=== PATIENT | female | born 2000 | race Caucasian/White ===

== ENCOUNTER 2023-11-02 22:15 | Emergency (ER) | payer BC, OTHER ==
[2023-11-02 22:37] VITALS: TEMP 98.6
[2023-11-02 23:06] LABS: Absolute Neutrophil Ct (ANC) 5.05 x10^3/uL (1.56-6.13); BASOPHIL % 1.1 % (0.1-1.2); Eosinophil % 5.7 % (0.7-5.8); Eosinophil (Absolute #) 0.51 x10^3/uL (0.04-0.36); Hemoglobin 11.8 g/dL (11.2-15.7); IMMATURE GRAN # 0.02 x10^3u/L (0.001-0.031); IMMATURE GRAN % 0.2 % (0.001-0.429); Lymphocyte (Absolute #) 2.73 x10^3/uL (1.18-3.74); Lymphocytes % 30.3 % (19.3-51.7); Mean Cell Volume 90.9 fL (79.4-94.8); Mean Corpuscular Hemoglobin 29.8 pg (25.6-32.2); Mean Corpuscular Hgb Concent. 32.8 g/dL (32.2-35.5); Mean Platelet Volume 9.5 fL (9.4-12.3); Monocyte (Absolute #) 0.59 x10^3/uL (0.24-0.86); Monocytes % 6.6 % (4.7-12.5); Neutrophil % 56.1 % (34.0-71.1); Platelet Count 333 x10^3/uL (182-369); Red Blood Count 3.96 x10^6/uL (3.93-5.22); Red Cell Distribution Width 13.2 % (11.7-14.4)
[2023-11-02] MEDS ORDERED: Sodium Chloride 0.9% 1000 ML 1,000 ML ONE (23:07)
[2023-11-02] MEDS ORDERED: Zofran 4 MG/2 ML VIAL ONE (23:07)
[2023-11-02] MEDS ORDERED: MORPHINE SULFATE 2 MG INJ ONE ×2 (23:07→23:50)
[2023-11-02] MEDS: Zofran 4 MG/2 ML VIAL IV ONE (23:10)
[2023-11-02] MEDS: Sodium Chloride 0.9% 1000 ML 1,000 ML IV STA (23:10)
[2023-11-02] MEDS: MORPHINE SULFATE 2 MG INJ IV ONE ×2 (23:10→23:50)
[2023-11-02 23:16] LABS: Appearance Cloudy (Clear); Bacteria Few /HPF (None Seen); Bilirubin Negative (Negative); Blood Negative (Negative); Epithelial Cells Moderate /HPF (None Seen); Glucose, Urine Negative (Negative); Hyaline Casts NONE SEEN /LPF (0-2); Ketones Negative (Negative); Leukocyte Esterase Negative (Negative); Nitrite Negative (Negative); Ph 6.5 (4.6-8.0); Protein,Urine Dip Negative (Negative); RBC 0-2 /HPF (0-5); Urobilinogen 0.2 mg/dL (0.2)
[2023-11-02 23:18] LABS: ALBUMIN 4.4 g/dL (3.5-5.0); BILIRUBIN,TOTAL 0.2 mg/dL (0.2-1.3); Calcium 9.5 mg/dL (8.4-10.2); Creatinine 1 0.79 mg/dL (0.52-1.04); EST GLOMERULAR FILTRATION RATE 106.4 ML/MIN; HCG SERUM TEST NEGATIVE (NEGATIVE); Potassium 3.9 mmol/L (3.5-5.1); Total Protein 7.5 g/dL (6.3-8.2)
[2023-11-02 23:21] LABS: ADD URINE CULTURE? NO (NO)
--- NOTE | 2023-11-02 23:23 | ERPHSYRPT ---
- History of Present Illness Time Seen by Provider: 11/02/23 22:24 Historian: patient Exam Limitations: no limitations Patient Subjective Stated Complaint: Abdominal pain Triage Nursing Assessment: Patient ambulated back to ED and transferred self to bed. Patient A+O X 3. Patient's skin pink, warm and dry. Patient complains of right lower abdominal pain that started today that has gotten worse. Patient states pain is 8/10. Patient complains of Nausea and diarrhea, but denies vomiting. Abdomen soft and round with BS X 4. Right lower quad tender with palpation. Physician History: 23-year-old female presented in the ER with complaint of right-sided abdominal pain waking her up from sleep since morning, moderate to severe sharp, hurts to ambulate, palpation, reports associated nausea but no vomiting. Also reports couple of episodes of loose stool. No fever or chills reported. Denies any known sick contact. Allergies/Adverse Reactions: No Known Drug Allergies Allergy (Unverified 11/02/23 22:28) Home Medications: Fluoxetine HCl [Prozac] 1 tab PO DAILY 11/02/23 [History] Propranolol HCl 1 tab PO BID 11/02/23 [History] Hx Influenza Vaccination/Date Given: No Hx Pneumococcal Vaccination/Date Given: No Immunizations Up to Date: Yes Travel Risk - International Travel Have you traveled outside of the country in past 3 weeks: No - Emerging Infectious Disease Are you exhibiting symptoms associated with any current EIDs: No - Review of Systems Constitutional: No Symptoms Ears, Nose, & Throat: No Symptoms Respiratory: No Symptoms Cardiac: No Symptoms Abdominal/Gastrointestinal: Abdominal Pain, Nausea, Diarrhea Genitourinary Symptoms: No Symptoms Musculoskeletal: No Symptoms Skin: No Symptoms Neurological: No Symptoms Psychological: No Symptoms Endocrine: No Symptoms Hematologic/Lymphatic: No Symptoms - Past Medical History Pertinent Past Medical History: Yes Neurological History: No Pertinent History ENT History: No Pertinent History Cardiac History: No Pertinent History Respiratory History: No Pertinent History Endocrine Medical History: No Pertinent History Musculoskeletal History: No Pertinent History GI Medical History: No Pertinent History History: No Pertinent History Psycho-Social History: Anxiety Female Reproductive Disorders: No Pertinent History Other Medical History: Hx of kidney stones. 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 - Past Surgical History Past Surgical History: Yes Neuro Surgical History: No Pertinent History Cardiac: No Pertinent History Respiratory: No Pertinent History Gastrointestinal: No Pertinent History Genitourinary: No Pertinent History Musculoskeletal: No Pertinent History Female Surgical History: Section, Tubal Ligation Other Surgical History: C section X 2 - Female History Hx Last Menstrual Period: 1 month ago Hx Now: (unkn) - Social History Smoking Status: Never smoker Exposure to second hand smoke: No Drug Use: marijuana - Social Determinants of Health Will the patient participate in the screening: Yes Do you worry about a steady place to live?: No Do you have any problems with any of the following?: No known problems In the past 12 months,have you had to go without utilities?: No Transportation Issues: No Has anyone in your support network made you feel unsafe?: No Have you or anyone in your house had to go without enough: No - Nursing Vital Signs Nursing Vital Signs: Initial Vital Signs Temperature 98.6 F 11/02/23 22:29 Pulse Rate 69 11/02/23 22:29 Respiratory Rate 18 11/02/23 22:29 Blood Pressure 124/85 11/02/23 22:29 O2 Sat by Pulse Oximetry 98 11/02/23 22:29 Pain Scale Pain Intensity 7 - Physical Exam General Appearance: no apparent distress, alert, anxiety Eye Exam: PERRL/EOMI Ears, Nose, Throat Exam: normal ENT inspection Neck Exam: normal inspection, supple, full range of motion Respiratory Exam: normal breath sounds, lungs clear Cardiovascular Exam: regular rate/rhythm, normal heart sounds Gastrointestinal/Abdomen Exam: soft, normal bowel sounds, tenderness (Right flank/right lower quadrant/periumbilical area with minimal guarding but no rebound tenderness.) Back Exam: normal inspection Extremity Exam: normal inspection, normal range of motion Neurologic Exam: alert, oriented x 3, cooperative Skin Exam: normal color SpO2 Interpretation: normal SpO2: 98 O2 Delivery: Room Air Ordered Tests: Active Orders 24 hr Category Date Time Status IV Insertion STAT Care 11/02/23 22:58 Active NPO (ED) STAT Care 11/02/23 22:58 Active ABDOMEN AND PELVIS W CONTRAST [CT] Stat Exams 11/02/23 22:59 Completed CBC W DIFF Stat Lab 11/02/23 23:03 Completed CMP Stat Lab 11/02/23 23:03 Completed HCG QUALITATIVE, SERUM Stat Lab 11/02/23 23:03 Completed LIPASE Stat Lab 11/02/23 23:03 Completed Lactic Acid Stat Lab 11/02/23 23:04 Completed UA W/RFX UR CULTURE Stat Lab 11/02/23 23:00 Completed Medication Summary Discontinued Medications Generic Name Dose Route Start Last Admin Trade Name Deepak PRN Reason Stop Dose Admin Sodium Chloride 1,000 mls @ 999 mls/hr 11/02/23 22:58 11/03/23 00:23 Sodium Chloride 0.9% 1000 Ml IV 11/02/23 23:58 Infused .Q1H1M STA Infusion Sodium Chloride Confirm 11/02/23 23:07 Sodium Chloride 0.9% 1000 Ml Administered 11/02/23 23:08 Dose 1,000 mls @ ud .ROUTE .STK-MED ONE Morphine Sulfate 2 mg 11/02/23 22:58 11/02/23 23:10 Morphine Sulfate 2 Mg/Ml Inj IV 11/02/23 22:59 2 mg STAT ONE Administration Morphine Sulfate Confirm 11/02/23 23:07 Morphine Sulfate 2 Mg/Ml Inj Administered 11/02/23 23:08 Dose 2 mg .ROUTE .STK-MED ONE Morphine Sulfate 2 mg 11/02/23 23:44 11/02/23 23:50 Morphine Sulfate 2 Mg/Ml Inj IV 11/02/23 23:45 2 mg STAT ONE Administration Morphine Sulfate Confirm 11/02/23 23:50 Morphine Sulfate 2 Mg/Ml Inj Administered 11/02/23 23:51 Dose 2 mg .ROUTE .STK-MED ONE Ondansetron HCl 4 mg 11/02/23 22:58 11/02/23 23:10 Ondansetron Hcl 4 Mg/2 Ml Vial IV 11/02/23 22:59 4 mg STAT ONE Administration Ondansetron HCl Confirm 11/02/23 23:07 Ondansetron Hcl 4 Mg/2 Ml Vial Administered 11/02/23 23:08 Dose 4 mg .ROUTE .STK-MED ONE Lab/Rad Data: Laboratory Result Diagrams 11/02/23 23:03 11/02/23 23:03 Laboratory Results 11/02/23 11/02/23 11/02/23 Range/Units 23:04 23:03 23:03 WBC (3.98-10.04) x10^3/uL RBC (3.93-5.22) x10^6/uL Hgb (11.2-15.7) g/dL Hct (34.1-44.9) % MCV (79.4-94.8) fL MCH (25.6-32.2) pg MCHC (32.2-35.5) g/dL RDW (11.7-14.4) % Plt Count (182-369) x10^3/uL MPV (9.4-12.3) fL Gran % (34.0-71.1) % Immature Gran % (Auto) (0.001-0.429) % Nucleat RBC Rel Count (0.00-0.2) % Eos # (Auto) (0.04-0.36) x10^3/uL Immature Gran # (Auto) (0.001-0.031) x10^3u/L Absolute Lymphs (auto) (1.18-3.74) x10^3/uL Absolute Monos (auto) (0.24-0.86) x10^3/uL Absolute Nucleated RBC (0.00-0.012) x10^3u/L Lymphocytes % (19.3-51.7) % Monocytes % (4.7-12.5) % Eosinophils % (0.7-5.8) % Basophils % (0.1-1.2) % Absolute Granulocytes (1.56-6.13) x10^3/uL Basophils # (0.01-0.08) x10^3/uL Sodium 140 (135-145) mmol/L Potassium 3.9 (3.5-5.1) mmol/L Chloride 105 (98-107) mmol/L Carbon Dioxide 29 (22-30) mmol/L Anion Gap 10.0 (5-15) MEQ/L BUN 6 L (7-17) mg/dL Creatinine 0.79 (0.52-1.04) mg/dL Estimated GFR 106.4 ML/MIN Glucose 101 (74-106) mg/dL Lactic Acid 0.5 (0.4-2.0) Calcium 9.5 (8.4-10.2) mg/dL Total Bilirubin 0.20 (0.2-1.3) mg/dL AST 20 (14-36) U/L ALT 13 (0-35) U/L Alkaline Phosphatase 57 (38-126) U/L Serum Total Protein 7.5 (6.3-8.2) g/dL Albumin 4.4 (3.5-5.0) g/dL Lipase 66 (23-300) U/L Serum HCG, Qual NEGATIVE (NEGATIVE) Urine Color (Yellow) Urine Appearance (Clear) Urine pH (4.6-8.0) Ur Specific [place] (1.005-1.030) Urine Protein (Negative) Urine Glucose (UA) (Negative) mg/dL Urine Ketones (Negative) Urine Blood (Negative) Urine Nitrite (Negative) Urine Bilirubin (Negative) Urine Urobilinogen (0.2) mg/dL Ur Leukocyte Esterase (Negative) U Hyaline Cast (Auto) (0-2) /LPF Urine Microscopic RBC (0-5) /HPF Urine Microscopic WBC (0-5) /HPF Ur Epithelial Cells (None Seen) /HPF Urine Bacteria (None Seen) /HPF Urine Culture Reflexed (NO) 11/02/23 11/02/23 Range/Units 23:03 23:00 WBC 9.0 (3.98-10.04) x10^3/uL RBC 3.96 (3.93-5.22) x10^6/uL Hgb 11.8 (11.2-15.7) g/dL Hct 36.0 (34.1-44.9) % MCV 90.9 (79.4-94.8) fL MCH 29.8 (25.6-32.2) pg MCHC 32.8 (32.2-35.5) g/dL RDW 13.2 (11.7-14.4) % Plt Count 333 (182-369) x10^3/uL MPV 9.5 (9.4-12.3) fL Gran % 56.1 (34.0-71.1) % Immature Gran % (Auto) 0.2 (0.001-0.429) % Nucleat RBC Rel Count 0.0 (0.00-0.2) % Eos # (Auto) 0.51 H (0.04-0.36) x10^3/uL Immature Gran # (Auto) 0.02 (0.001-0.031) x10^3u/L Absolute Lymphs (auto) 2.73 (1.18-3.74) x10^3/uL Absolute Monos (auto) 0.59 (0.24-0.86) x10^3/uL Absolute Nucleated RBC 0.00 (0.00-0.012) x10^3u/L Lymphocytes % 30.3 (19.3-51.7) % Monocytes % 6.6 (4.7-12.5) % Eosinophils % 5.7 (0.7-5.8) % Basophils % 1.1 (0.1-1.2) % Absolute Granulocytes 5.05 (1.56-6.13) x10^3/uL Basophils # 0.10 H (0.01-0.08) x10^3/uL Sodium (135-145) mmol/L Potassium (3.5-5.1) mmol/L Chloride (98-107) mmol/L Carbon Dioxide (22-30) mmol/L Anion Gap (5-15) MEQ/L BUN (7-17) mg/dL Creatinine (0.52-1.04) mg/dL Estimated GFR ML/MIN Glucose (74-106) mg/dL Lactic Acid (0.4-2.0) Calcium (8.4-10.2) mg/dL Total Bilirubin (0.2-1.3) mg/dL AST (14-36) U/L ALT (0-35) U/L Alkaline Phosphatase (38-126) U/L Serum Total Protein (6.3-8.2) g/dL Albumin (3.5-5.0) g/dL Lipase (23-300) U/L Serum HCG, Qual (NEGATIVE) Urine Color Yellow (Yellow) Urine Appearance Cloudy A (Clear) Urine pH 6.5 (4.6-8.0) Ur Specific [place] 1.010 (1.005-1.030) Urine Protein Negative (Negative) Urine Glucose (UA) Negative (Negative) mg/dL Urine Ketones Negative (Negative) Urine Blood Negative (Negative) Urine Nitrite Negative (Negative) Urine Bilirubin Negative (Negative) Urine Urobilinogen 0.2 (0.2) mg/dL Ur Leukocyte Esterase Negative (Negative) U Hyaline Cast (Auto) NONE SEEN (0-2) /LPF Urine Microscopic RBC 0-2 (0-5) /HPF Urine Microscopic WBC 6-10 A (0-5) /HPF Ur Epithelial Cells Moderate A (None Seen) /HPF Urine Bacteria Few A (None Seen) /HPF Urine Culture Reflexed NO (NO) - Progress Progress: improved Progress Note: 11/03/23 00:50 23-year-old is evaluated in the ER for right lower abdominal pain with some loose stool. Patient has tenderness with minimal guarding initially, given fluids and symptomatic treatment, on reevaluation has no peritoneal signs. Feeling better. No diarrhea while in the ER. Normal white count, fairly unremarkable chemistries. Questionable UTI, started on Keflex. I have obtained CT abdomen pelvis with contrast which is negative for acute appendicitis, colitis, mesenteric adenitis, stones, perforation, abscess, pyelonephritis etc. She is recommended to take Tylenol ibuprofen, increase hydration and outpatient follow-up. Discussed signs symptoms of worsening needing return to ER which she seems understanding. Stable for discharge. Counseled pt/family regarding: lab results, diagnosis, need for follow-up, rad results Medical Desision Making - Diagnostic Testing Diagnostic test were ordered, analyzed, and reviewed by me: Yes Radiological Interpretation: Reviewed by me, Teleradiologist Report - Risk of complications The pt has a mod risk of morbidity or mortality based on: Need for prescription drug management - Departure Departure Disposition: Home Clinical Impression: Right sided abdominal pain, UTI (urinary tract infection) Condition: Stable Critical Care Time: No Referrals: SKYLER DAVENPORT MD [Primary Care Provider] - Follow up/PCP as directed JANNETTE ADAMS MD [ACTIVE STAFF] - Follow up/PCP as directed (Call for a ppointment) Instructions: Severe Abdominal Pain, Adult (DC) Additional Instructions: Take Tylenol/ibuprofen as needed. Drink plenty of fluids. Follow-up with primary care for reevaluation. Return to ER for intractable pain, nausea vomiting, difficulty urination etc. Prescriptions: Ibuprofen 600 mg PO Q6HPRN PRN 10 Days #20 tablet PRN Reason: Pain Cephalexin Mh 500 mg [Keflex 500 mg] 500 mg PO TID #21 cap
--- NOTE | 2023-11-03 00:36 | XRAY ---
CLINICAL HISTORY: right side pain COMPARISON: None TECHNIQUE: Contiguous axial images were obtained from the level of the diaphragm to the pubic symphysis with intravenous contrast. Coronal and sagittal reconstructions were likewise performed and indicated to increase the sensitivity for detecting clinically relevant pathology. If IV contrast material had not been administered, the likelihood of detecting abnormalities relevant to the patient's condition would have been substantially decreased. CT scan was performed according to ALARA (as low as reasonable achievable). FINDINGS: The visualized lung bases are clear. The liver is normal in size and attenuation. No focal liver lesions are seen. There is no intra or extrahepatic biliary ductal dilatation. Hepatic vasculature is patent. The gallbladder is present. The spleen, pancreas, and adrenal glands are unremarkable. The kidneys are normal in size and attenuation. There is no hydronephrosis or perinephric fat stranding. No renal calculi or renal masses are identified. The ureters are normal in caliber and no ureteral calculi are seen. The bladder is normal in contour. Pelvic viscera are unremarkable. No focal or diffuse bowel wall thickening or evidence of bowel obstruction is identified. The appendix is visualized in the right lower quadrant and appears within normal limits. Abdominal and pelvic vasculature is patent. No adenopathy are seen. No acute No aggressive appearing osseous lesions are identified. IMPRESSION: Minimal free fluid noted in pouch of Edmund. No other abnormality seen. Electronically Signed by: Mitchell Collins MD. (11/03/2023 00:31:50 EDT)
[2023-11-03] MEDS: KEFLEX 500 MG PO ONE (00:57)
[2023-11-03] MEDS ORDERED: KEFLEX 500 MG ONE (00:57)
[2023-11-03 01:04] VITALS: BP 109/69; PULSE 77; RESP 14; O2SAT 99
== END 2023-11-03 01:25 | disposition home or self-care (01) ==
LOC: ED 22:15
DX: N39.0 Urinary tract infection, site not specified (principal); R10.9 Unspecified abdominal pain; Z79.899 Other long term (current) drug therapy
CPT/HCPCS: 36000; 36415; 74177; 80053; 81001; 83605; 83690; 84703; 85025; 96360; 96374; 96375; 96376; 99284; J2270; J2405; A9270-GY

== ENCOUNTER 2023-11-24 01:03 | Emergency (ER) | payer BC, OTHER | END 2023-11-24 01:35 | disposition left against medical advice (07) | LOC: ED 01:03 | DX: Z53.21 Procedure and treatment not carried out due to patient leaving prior to being seen by health care provider (principal) ==

== ENCOUNTER 2024-04-21 13:55 | Emergency (ER) | payer BC, OTHER ==
[2024-04-21 15:11] VITALS: BP 114/72; RESP 16; TEMP 97
[2024-04-21 16:02] LABS: Group A Strep NOT DETECTED (NEGATIVE)
[2024-04-21 16:13] LABS: INFLUENZA A NEGATIVE (NEGATIVE); INFLUENZA B NEGATIVE (NEGATIVE); RESPIRATORY SYNCTIAL VIRUS NEGATIVE (NEGATIVE)
[2024-04-21 16:30] LABS: SARS-CoV-2 Xpert Express POSITIVE (NEGATIVE)
--- NOTE | 2024-04-21 17:03 | ERPHSYRPT ---
- History of Present Illness Time Seen by Provider: 04/21/24 16:53 Source: patient Exam Limitations: no limitations Patient Subjective Stated Complaint: pt here for sore throat,cough, rib pain and pain with deep breath to chest Triage Nursing Assessment: pt alert, walked back, face mask in place, has occ cough, resp easy, Physician History: 23-year-old female presented in the ER with flulike symptoms for the last 2 days with progressive worsening. Reports subjective feeling of fever chills, sore throat, aches and pains all over and nonproductive cough without difficulty breathing. Denies any known sick contact. Timing/Duration: day(s) (2) Allergies/Adverse Reactions: No Known Drug Allergies Allergy (Verified 04/21/24 15:09) Home Medications: No Reportable Medications [No Reported Medications] 04/21/24 [History] Hx Tetanus, Diphtheria Vaccination/Date Given: No Hx Influenza Vaccination/Date Given: No Hx Pneumococcal Vaccination/Date Given: No Immunizations Up to Date: Yes Travel Risk - International Travel Have you traveled outside of the country in past 3 weeks: No - Emerging Infectious Disease Are you exhibiting symptoms associated with any current EIDs: Yes Symptoms: Cough: New Onset - Review of Systems Constitutional: Fever, Chills, Fatigue, Weakness Eyes: No Symptoms Ears, Nose, & Throat: Nose Congestion, Throat Pain Respiratory: Cough Cardiac: No Symptoms Abdominal/Gastrointestinal: Diarrhea Genitourinary Symptoms: No Symptoms Musculoskeletal: Myalgias Skin: No Symptoms Neurological: Headache Hematologic/Lymphatic: No Symptoms - Past Medical History Pertinent Past Medical History: No Neurological History: No Pertinent History ENT History: No Pertinent History Cardiac History: No Pertinent History Respiratory History: No Pertinent History Endocrine Medical History: No Pertinent History Musculoskeletal History: No Pertinent History GI Medical History: No Pertinent History History: No Pertinent History Psycho-Social History: Anxiety Female Reproductive Disorders: No Pertinent History Other Medical History: Hx of kidney stones. 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 - Past Surgical History Past Surgical History: Yes Neuro Surgical History: No Pertinent History Cardiac: No Pertinent History Respiratory: No Pertinent History Gastrointestinal: No Pertinent History Genitourinary: Other Musculoskeletal: No Pertinent History Female Surgical History: Section Other Surgical History: kidney stone removal - Female History Hx Last Menstrual Period: week ago Hx Now: No - Social History Smoking Status: Never smoker Exposure to second hand smoke: No Drug Use: marijuana - Social Determinants of Health Will the patient participate in the screening: Yes Do you worry about a steady place to live?: No Do you have any problems with any of the following?: No known problems In the past 12 months,have you had to go without utilities?: No Transportation Issues: No Has anyone in your support network made you feel unsafe?: No Have you or anyone in your house had to go without enough: No - Nursing Vital Signs Nursing Vital Signs: Initial Vital Signs Temperature 97.0 F 04/21/24 15:10 Pulse Rate 106 H 04/21/24 15:10 Respiratory Rate 16 04/21/24 15:10 Blood Pressure 114/72 04/21/24 15:10 O2 Sat by Pulse Oximetry 98 04/21/24 15:10 Pain Scale Pain Intensity 6 - Physical Exam General Appearance: no apparent distress, alert Eye Exam: PERRL/EOMI Ears, Nose, Throat Exam: pharyngeal erythema Neck Exam: normal inspection, non-tender, supple, full range of motion, No meningismus Respiratory Exam: normal breath sounds, lungs clear Cardiovascular Exam: regular rate/rhythm, normal heart sounds Gastrointestinal/Abdomen Exam: soft, normal bowel sounds, No tenderness Extremity Exam: normal inspection, normal range of motion Neurologic Exam: alert, oriented x 3, cooperative Skin Exam: normal color SpO2 Interpretation: normal SpO2: 98 O2 Delivery: Room Air Lab/Rad Data: Laboratory Results 04/21/24 Range/Units 15:34 Influenza Type A Ag NEGATIVE (NEGATIVE) Influenza Type B Ag NEGATIVE (NEGATIVE) RSV (PCR) NEGATIVE (NEGATIVE) SARS-CoV-2 (PCR) POSITIVE A (NEGATIVE) Group A Strep Antibody NOT DETECTED (NEGATIVE) - Progress Progress: unchanged Air Movement: good Progress Note: 04/21/24 16:59 23-year-old is evaluated in the ER for flulike symptoms for the last 2 days. Patient is afebrile here. Lungs clear to auscultation. No tachypnea, minimal tachycardia initially which improved. Nontoxic appearance. Has negative flu RSV and strep but has positive COVID-19. Went over risk and benefits of Paxlovid and patient does not want to go for it. I think it is reasonable and she is recommended symptomatic/supportive care and outpatient follow-up. Discussed signs symptoms of worsening needing return to ER which she seems understanding. Stable for discharge. 04/21/24 17:02 Blood Culture(s) Obtained: No Antibiotics given: No Counseled pt/family regarding: lab results, diagnosis, need for follow-up Medical Desision Making - Diagnostic Testing Diagnostic test were ordered, analyzed, and reviewed by me: Yes - Departure Departure Disposition: Home Clinical Impression: COVID-19 virus detected, Viral syndrome Condition: Stable Critical Care Time: No Referrals: DOCTOR,NO FAMILY [Primary Care Provider] - Follow up with PCP 1 day Instructions: COVID-19 - ED discharge instructions Additional Instructions: take Tylenol/Ibuprofen as needed for aches and pain/fever chills. Drink plenty of fluids. Follow-up with primary care for reevaluation. Return to ER for worsening cough or if develop difficulty breathing etc.
[2024-04-21 17:13] VITALS: PULSE 100; O2SAT 97
== END 2024-04-21 17:13 | disposition home or self-care (01) ==
LOC: ED 13:55
DX: U07.1 COVID-19 (principal); J02.9 Acute pharyngitis, unspecified; M79.10 Myalgia, unspecified site; R05.1 Acute cough
CPT/HCPCS: 0241U; 87651; 99284; 99282

== ENCOUNTER 2024-06-02 18:51 | Emergency (ER) | payer BC, OTHER ==
--- NOTE | 2024-06-02 19:28 | ERPHSYRPT ---
- History of Present Illness Time Seen by Provider: 06/02/24 19:28 Source: patient Exam Limitations: no limitations Physician History: This is a 23-year-old white female patient who had unprotected sexual intercourse 4 days ago and now has dysuria and some mild vaginal swelling. She states it is not uncommon for her to have vaginal swelling that is short-lived after sexual intercourse however, this has persisted and is a little more intense than usual. She has had no vaginal discharge. However she does have burning with urination. She takes no medications and she has no known drug allergies. She has no abdominal pain. Patient also has complaint of mild right flank pain Timing/Duration: day(s) (4) Activites at Onset: sexual activity Quality: burning Onset Location: right flank, vaginal Severity of Pain-Max: moderate Severity of Pain-Current: mild Prior abdominal problems: none Sexual intercourse history: unprotected intercourse Modifying Factors: Improves With: urinating (Burning with urination) Associated Symptoms: other (Right flank pain) Allergies/Adverse Reactions: No Known Drug Allergies Allergy (Verified 04/21/24 15:09) Hx Tetanus, Diphtheria Vaccination/Date Given: No Hx Influenza Vaccination/Date Given: No Hx Pneumococcal Vaccination/Date Given: No Travel Risk - International Travel Have you traveled outside of the country in past 3 weeks: No - Emerging Infectious Disease Are you exhibiting symptoms associated with any current EIDs: Yes Symptoms: Cough: New Onset - Review of Systems Constitutional: No Symptoms Eyes: No Symptoms Ears, Nose, & Throat: No Symptoms Respiratory: No Symptoms Cardiac: No Symptoms Abdominal/Gastrointestinal: No Symptoms Genitourinary Symptoms: Dysuria, Flank Pain (Right side) Musculoskeletal: No Symptoms Skin: No Symptoms Neurological: No Symptoms Psychological: No Symptoms Endocrine: No Symptoms Hematologic/Lymphatic: No Symptoms Immunological/Allergic: No Symptoms All Other Systems: Reviewed and Negative - Past Medical History Pertinent Past Medical History: No Neurological History: No Pertinent History ENT History: No Pertinent History Cardiac History: No Pertinent History Respiratory History: No Pertinent History Endocrine Medical History: No Pertinent History Musculoskeletal History: No Pertinent History GI Medical History: No Pertinent History History: No Pertinent History Psycho-Social History: Anxiety Female Reproductive Disorders: No Pertinent History Other Medical History: Hx of kidney stones. 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 - Past Surgical History Past Surgical History: Yes Neuro Surgical History: No Pertinent History Cardiac: No Pertinent History Respiratory: No Pertinent History Gastrointestinal: No Pertinent History Genitourinary: Other Musculoskeletal: No Pertinent History Female Surgical History: Section Other Surgical History: kidney stone removal - Female History Hx Last Menstrual Period: week ago - Social History Smoking Status: Never smoker Exposure to second hand smoke: No Drug Use: marijuana - Social Determinants of Health Will the patient participate in the screening: Yes Do you worry about a steady place to live?: No In the past 12 months,have you had to go without utilities?: No Transportation Issues: No Has anyone in your support network made you feel unsafe?: No Have you or anyone in your house had to go w/o enough food: No - Nursing Vital Signs Nursing Vital Signs: Initial Vital Signs Temperature 98.5 F 06/02/24 19:35 Pulse Rate 94 H 06/02/24 19:35 Respiratory Rate 18 06/02/24 19:35 Blood Pressure 111/73 06/02/24 19:35 O2 Sat by Pulse Oximetry 99 06/02/24 19:35 Pain Scale Pain Intensity 7 - Physical Exam General Appearance: no apparent distress, alert, anxiety Eye Exam: PERRL/EOMI, eyes nml inspection Ears, Nose, Throat Exam: normal ENT inspection, moist mucous membranes Neck Exam: normal inspection, non-tender, supple, full range of motion Respiratory Exam: normal breath sounds, lungs clear, airway intact, No chest tenderness, No respiratory distress Cardiovascular Exam: regular rate/rhythm, normal heart sounds, normal peripheral pulses Gastrointestinal/Abdomen Exam: soft, normal bowel sounds, No tenderness Pelvic Exam: not done Rectal Exam: not done Back Exam: normal inspection, normal range of motion, No CVA tenderness, No vertebral tenderness Extremity Exam: normal inspection, normal range of motion, pelvis stable Neurologic Exam: alert, oriented x 3, cooperative, showroom salesperson II-XII nml as tested, nml cerebellar function, nml station & gait, sensation nml Skin Exam: normal color, warm, dry Lymphatic Exam: No adenopathy SpO2 Interpretation: normal O2 Delivery: Room Air - Course Nursing assessment & vital signs reviewed: Yes Ordered Tests: Active Orders 24 hr Category Date Time Status CULTURE,URINE Stat Lab 06/02/24 19:50 Received HCG QUALITATIVE, URINE Stat Lab 06/02/24 19:50 Completed UA W/RFX UR CULTURE Stat Lab 06/02/24 19:50 Completed Medication Summary Discontinued Medications Generic Name Dose Route Start Last Admin Trade Name Deepak PRN Reason Stop Dose Admin Levofloxacin 500 mg 06/02/24 20:55 06/02/24 21:10 Levofloxacin 500 Mg Tablet PO 06/02/24 20:56 500 mg STAT ONE Administration Levofloxacin Confirm 06/02/24 21:04 Levofloxacin 500 Mg Tablet Administered 06/02/24 21:05 Dose 500 mg .ROUTE .[facility] ONE Phenazopyridine HCl 200 mg 06/02/24 20:56 06/02/24 21:10 Phenazopyridine Hcl 200 Mg Tablet PO 06/02/24 20:57 200 mg STAT ONE Administration Phenazopyridine HCl Confirm 06/02/24 21:04 Phenazopyridine Hcl 200 Mg Tablet Administered 06/02/24 21:05 Dose 200 mg .ROUTE .[facility] ONE Lab/Rad Data: Laboratory Results 06/02/24 06/02/24 Range/Units 19:50 19:50 Urine Color Yellow (Yellow) Urine Appearance Cloudy A (Clear) Urine pH 6.5 (4.6-8.0) Ur Specific [place] 1.020 (1.005-1.030) Urine Protein Trace A (Negative) Urine Glucose (UA) Negative (Negative) mg/dL Urine Ketones Trace A (Negative) Urine Blood Negative (Negative) Urine Nitrite Negative (Negative) Urine Bilirubin Negative (Negative) Urine Urobilinogen 1.0 A (0.2) mg/dL Ur Leukocyte Esterase Moderate A (Negative) U Hyaline Cast (Auto) NONE SEEN (0-2) /LPF Urine Microscopic RBC 3-5 (0-5) /HPF Urine Microscopic WBC 11-20 A (0-5) /HPF Ur Epithelial Cells Few (None Seen) /HPF Urine Bacteria None Seen (None Seen) /HPF Urine Culture Reflexed YES (NO) Urine HCG, Qual NEGATIVE (NEGATIVE) - Progress Progress: unchanged Air Movement: good Progress Note: 06/02/24 20:00 My medical decision making and the assignment of low complexity is based on review of the patient's past medical history, review the patient's medication list, reviewed patient drug allergy list, history present illness and physical findings on examination. The workup in this patient includes urinalysis, urine test, urine GC/chlamydia test. Differential diagnosis includes but is not limited to urinary tract infection, gonorrhea infection, chlamydial infection 06/02/24 21:56 I interpreted the urinalysis and the test that returned. Patient does have a urinary tract infection and her test is negative. The patient has been here approximately 3 hours and I was just informed that it be another hour and 15 minutes before the urine GC/chlamydia returns. Apparently, down in lab, the first run was failed run. They are rerunning it. I gave the option of waiting for the test to return and we could start the medicine here once the results return if it is positive versus allowing her to be discharged to home and we will call her with results. If the urine GC/chlamydia results are negative nothing else needs to be performed other than remotely sending Cipro and Pyridium to her pharmacy to treat a urinary tract infection. If those results are positive I will remotely send the additional appropriate antibiotics in to her pharmacy. Patient prefers to go home as she needs to get up early for work Blood Culture(s) Obtained: No Antibiotics given: Yes Counseled pt/family regarding: lab results, diagnosis, need for follow-up Medical Desision Making - Diagnostic Testing Diagnostic test were ordered, analyzed, and reviewed by me: Yes - Risk of complications The pt has a mod risk of morbidity or mortality based on: Need for prescription drug management - Departure Departure Disposition: Home Clinical Impression: Urinary tract infection Condition: Stable Critical Care Time: No Referrals: DOCTOR,NO FAMILY [Primary Care Provider] - Follow up/PCP as directed Additional Instructions: Drink plenty of fluids. Take your antibiotics and Pyridium as prescribed. You may use Tylenol and ibuprofen for pain and fever control. Use a sitz bath twice a day with either warm soapy water or warm Epsom salt water. Call your primary care provider tomorrow, 06/03/2024, to make arrangements for further evaluation management. Prescriptions: Ciprofloxacin [Cipro 500 MG] 500 mg PO BID #14 tablet Phenazopyridine HCl 200 mg [Pyridium 200 mg] 200 mg PO TID #6 tablet
[2024-06-02 19:59] LABS: HCG URINE TEST NEGATIVE (NEGATIVE)
[2024-06-02 20:06] LABS: Appearance Cloudy (Clear); Bacteria None Seen /HPF (None Seen); Bilirubin Negative (Negative); Blood Negative (Negative); Epithelial Cells Few /HPF (None Seen); Glucose, Urine Negative (Negative); Hyaline Casts NONE SEEN /LPF (0-2); Ketones Trace (Negative); Leukocyte Esterase Moderate (Negative); Nitrite Negative (Negative); Ph 6.5 (4.6-8.0); Protein,Urine Dip Trace (Negative)
[2024-06-02] MEDS ORDERED: PYRIDIUM 200 MG ONE (21:04)
[2024-06-02] MEDS ORDERED: Levofloxacin 500 MG Tablet ONE (21:04)
[2024-06-02] MEDS: Levofloxacin 500 MG Tablet PO ONE (21:10)
[2024-06-02] MEDS: PYRIDIUM 200 MG PO ONE (21:10)
[2024-06-02 21:13] VITALS: BP 118/74; PULSE 96; RESP 16; TEMP 97.9; O2SAT 100
[2024-06-02] MEDS ORDERED: NORCO 5/325 MG ONE (22:01)
[2024-06-02] MEDS: NORCO 5/325 MG PO ONE (22:03)
[2024-06-02 22:55] LABS: CHLAMYDIA DNA NOT DETECTED (NEGATIVE); GC DNA Probe NOT DETECTED (NEGATIVE)
== END 2024-06-02 22:30 | disposition home or self-care (01) ==
LOC: ED 18:51
DX: N39.0 Urinary tract infection, site not specified (principal); R30.0 Dysuria; Z79.899 Other long term (current) drug therapy
CPT/HCPCS: 81001; 81025; 87086; 87491; 87591; 99283; A9270-GY